=== PATIENT | male | born 1955 | race Caucasian/White ===

== ENCOUNTER 2020-08-11 04:35 | Emergency (ER) | payer OTHER ==
[~2020-08-11] VITALS: Ht 172.7 cm; Wt 66.5 kg
--- NOTE | 2020-08-11 05:26 | NUR ---
PT ARRIVED VIA PRIVATE CAR FROM [facility] [place], FOR AN INTERFACILITY TRANSFER FOR ESOPHAGEAL OBSTRUCTION. PT AIRWAY INTACT, GOOD AERATION AND OXYGENATION. PT RESTING COMFORTABLY IN RWALES, AND ER MD TO BEDSIDE TO EVAL PT. PT ON CR MONITOR, AND CONSCIOUSS SEDATION PREPARED.
[2020-08-11] MEDS ORDERED: PROPOFOL 10 MG/ML, 20ML ONE (05:36)
[2020-08-11] MEDS ORDERED: PROPOFOL 10 MG/ML, 20ML IVPush ONE (06:00)
[2020-08-11] MEDS ORDERED: ONDANSETRON 2MG/ML, 2ML ONE (06:24)
--- NOTE | 2020-08-11 06:46 | NUR ---
CONSCIOUS SEDATION STARTED AT 0620 AND FINISHED AT 0638. SEE PAPER CHARTING. MD AT BEDSIDE AND GI MD COMPLETED ENDOSCOPE. SEE V/S PRINT OUT SHEET.
--- NOTE | 2020-08-11 06:47 | NUR ---
REPORT AND CARE TO VIVIANA KUMAR
--- NOTE | 2020-08-11 06:53 | NUR ---
RECEIVED SBAR REPORT FROM [facility]. PT IS AWAKE AND ALERT AND ORIENTED, VSS, NADN. CALL LIGHT W/IN REACH. FRIEND IS BEDSIDE W/ PT. MD BEDSIDE NOW.
[2020-08-11 07:55] VITALS: BP 132/93
== END 2020-08-11 07:57 | disposition home or self-care (01) ==
LOC: ED 07:15
DX: T18.128A Food in esophagus causing other injury, initial encounter (principal); R94.31 Abnormal electrocardiogram [ECG] [EKG]; I10 Essential (primary) hypertension; X58.XXXA Exposure to other specified factors, initial encounter; Y93.89 Activity, other specified; Y92.89 Other specified places as the place of occurrence of the external cause; Y99.8 Other external cause status
CPT/HCPCS: 88305; 93005; 99284; 99285